=== PATIENT | male | born 1960 | race Caucasian/White ===

== ENCOUNTER → 2024-06-08 | Outpatient (CLI) | payer BC ==
[2024-06-08 10:17] LABS: BASO # 0.05 K/mm3 (0.02-0.10); EOS # 0.52 K/mm3 (0.04-0.40); EOS % 6.5 % (0.0-4.0); HEMATOCRIT 47.6 % (42.0-52.0); HEMOGLOBIN 16.5 g/dL (13.5-18.0); LYMPH# 1.51 K/mm3 (1.50-4.00); MEAN CELL VOLUME 91 fl (78-100); MEAN CORPUSCULAR HEMOGLOBIN 32 pg (27-31); MEAN CORPUSCULAR HGB CONC 35 g/dL (33-37); MONO # 0.77 K/mm3 (0.20-0.80); NEU # 5.12 K/mm3 (1.40-6.50); PLATELET COUNT 238 K/mm3 (130-400); RED BLOOD COUNT 5.22 M/mm3 (4.20-5.60); RED CELL DISTRIBUTION WIDTH 12.2 % (11.5-14.5)
[2024-06-08 10:26] LABS: CALCIUM 9.5 mg/dL (8.3-10.5)
[2024-06-08 10:27] LABS: TOTAL PROTEIN 6.5 g/dL (6.2-8.1)
[2024-06-08 10:29] LABS: TOTAL BILIRUBIN 0.3 mg/dL (0.2-1.2)
== END ==
LOC: LAB 10:05
PROVIDERS: Internal Medicine
DX: C20 Malignant neoplasm of rectum (principal)

== ENCOUNTER → 2024-06-22 | Outpatient (CLI) | payer BC ==
[2024-06-22 12:56] LABS: BASO # 0.04 K/mm3 (0.02-0.10); EOS # 0.36 K/mm3 (0.04-0.40); EOS % 7.2 % (0.0-4.0); HEMATOCRIT 46.6 % (42.0-52.0); LYMPH# 1.57 K/mm3 (1.50-4.00); MEAN CELL VOLUME 93 fl (78-100); MEAN CORPUSCULAR HEMOGLOBIN 32 pg (27-31); MEAN CORPUSCULAR HGB CONC 34 g/dL (33-37); MEAN PLATELET VOLUME 9.7 fl (7.4-10.4); MONO # 0.57 K/mm3 (0.20-0.80); NEU # 2.45 K/mm3 (1.40-6.50); PLATELET COUNT 181 K/mm3 (130-400); RED CELL DISTRIBUTION WIDTH 12.7 % (11.5-14.5)
[2024-06-22 13:09] LABS: ALBUMIN 3.8 g/dL (3.4-4.8)
[2024-06-22 13:11] LABS: CALCIUM 9.1 mg/dL (8.3-10.5)
[2024-06-22 13:12] LABS: TOTAL PROTEIN 6.3 g/dL (6.2-8.1)
[2024-06-22 13:14] LABS: TOTAL BILIRUBIN 0.3 mg/dL (0.2-1.2)
== END ==
LOC: LAB 12:38
PROVIDERS: Internal Medicine
DX: C20 Malignant neoplasm of rectum (principal)

== ENCOUNTER → 2024-07-06 | Outpatient (CLI) | payer BC ==
[2024-07-06 11:37] LABS: BASO # 0.02 K/mm3 (0.02-0.10); EOS # 0.16 K/mm3 (0.04-0.40); EOS % 3.1 % (0.0-4.0); HEMATOCRIT 44.9 % (42.0-52.0); HEMOGLOBIN 15.4 g/dL (13.5-18.0); LYMPH# 0.83 K/mm3 (1.50-4.00); MEAN CELL VOLUME 95 fl (78-100); MEAN CORPUSCULAR HEMOGLOBIN 33 pg (27-31); MEAN CORPUSCULAR HGB CONC 34 g/dL (33-37); MEAN PLATELET VOLUME 9.9 fl (7.4-10.4); NEU # 3.65 K/mm3 (1.40-6.50); PLATELET COUNT 113 K/mm3 (130-400); RED BLOOD COUNT 4.74 M/mm3 (4.20-5.60); RED CELL DISTRIBUTION WIDTH 13.4 % (11.5-14.5); WHITE BLOOD COUNT 5.2 K/mm3 (4.8-10.8)
[2024-07-06 11:40] LABS: ALBUMIN 3.7 g/dL (3.4-4.8)
[2024-07-06 11:41] LABS: CALCIUM 9.5 mg/dL (8.3-10.5)
[2024-07-06 11:43] LABS: TOTAL PROTEIN 6.1 g/dL (6.2-8.1)
[2024-07-06 11:44] LABS: TOTAL BILIRUBIN 0.4 mg/dL (0.2-1.2)
== END ==
LOC: LAB 11:06
PROVIDERS: Internal Medicine
DX: C20 Malignant neoplasm of rectum (principal)

== ENCOUNTER → 2024-07-20 | Outpatient (CLI) | payer SELFPAY ==
[2024-07-20 10:22] LABS: BASO # 0.04 K/mm3 (0.02-0.10); EOS # 0.16 K/mm3 (0.04-0.40); EOS % 2.8 % (0.0-4.0); HEMATOCRIT 44.6 % (42.0-52.0); LYMPH# 1.22 K/mm3 (1.50-4.00); MEAN CELL VOLUME 97 fl (78-100); MEAN CORPUSCULAR HEMOGLOBIN 33 pg (27-31); MEAN CORPUSCULAR HGB CONC 34 g/dL (33-37); MEAN PLATELET VOLUME 9.5 fl (7.4-10.4); MONO # 0.78 K/mm3 (0.20-0.80); NEU # 3.43 K/mm3 (1.40-6.50); PLATELET COUNT 116 K/mm3 (130-400); RED BLOOD COUNT 4.61 M/mm3 (4.20-5.60); RED CELL DISTRIBUTION WIDTH 14.3 % (11.5-14.5); WHITE BLOOD COUNT 5.7 K/mm3 (4.8-10.8)
[2024-07-20 10:30] LABS: CALCIUM 9.6 mg/dL (8.3-10.5)
[2024-07-20 10:31] LABS: TOTAL PROTEIN 6.8 g/dL (6.2-8.1)
[2024-07-20 10:33] LABS: TOTAL BILIRUBIN 0.2 mg/dL (0.2-1.2)
[2024-07-20 10:38] LABS: MAGNESIUM 1.77 mg/dL (1.60-2.60)
== END ==
LOC: LAB 10:11
PROVIDERS: Internal Medicine
DX: C20 Malignant neoplasm of rectum (principal)

== ENCOUNTER → 2024-08-10 | Outpatient (CLI) | payer BC ==
[2024-08-10 14:05] LABS: BASO # 0.03 K/mm3 (0.02-0.10); EOS # 0.13 K/mm3 (0.04-0.40); EOS % 2.3 % (0.0-4.0); HEMATOCRIT 43.3 % (42.0-52.0); HEMOGLOBIN 14.6 g/dL (13.5-18.0); LYMPH# 1.12 K/mm3 (1.50-4.00); MEAN CELL VOLUME 98 fl (78-100); MEAN CORPUSCULAR HEMOGLOBIN 33 pg (27-31); MEAN CORPUSCULAR HGB CONC 34 g/dL (33-37); NEU # 3.46 K/mm3 (1.40-6.50); PLATELET COUNT 89 K/mm3 (130-400); RED CELL DISTRIBUTION WIDTH 15.9 % (11.5-14.5); WHITE BLOOD COUNT 5.7 K/mm3 (4.8-10.8)
[2024-08-10 14:29] LABS: ALBUMIN 3.6 g/dL (3.4-4.8)
[2024-08-10 14:31] LABS: CALCIUM 9.2 mg/dL (8.3-10.5)
[2024-08-10 14:32] LABS: TOTAL PROTEIN 6.2 g/dL (6.2-8.1)
[2024-08-10 14:34] LABS: TOTAL BILIRUBIN 0.5 mg/dL (0.2-1.2)
== END ==
LOC: LAB 13:52
PROVIDERS: Internal Medicine
DX: C20 Malignant neoplasm of rectum (principal)

== ENCOUNTER → 2024-08-24 | Outpatient (CLI) | payer BC ==
[2024-08-24 14:02] LABS: BASO # 0.03 K/mm3 (0.02-0.10); EOS # 0.19 K/mm3 (0.04-0.40); EOS % 3.5 % (0.0-4.0); HEMATOCRIT 46.4 % (42.0-52.0); HEMOGLOBIN 15.5 g/dL (13.5-18.0); LYMPH# 1.52 K/mm3 (1.50-4.00); MEAN CELL VOLUME 99 fl (78-100); MEAN CORPUSCULAR HEMOGLOBIN 33 pg (27-31); MEAN CORPUSCULAR HGB CONC 33 g/dL (33-37); MEAN PLATELET VOLUME 10.1 fl (7.4-10.4); MONO # 0.62 K/mm3 (0.20-0.80); NEU # 3.05 K/mm3 (1.40-6.50); PLATELET COUNT 110 K/mm3 (130-400); RED BLOOD COUNT 4.67 M/mm3 (4.20-5.60); RED CELL DISTRIBUTION WIDTH 14.6 % (11.5-14.5); WHITE BLOOD COUNT 5.4 K/mm3 (4.8-10.8)
[2024-08-24 14:07] LABS: CALCIUM 10.2 mg/dL (8.3-10.5)
[2024-08-24 14:08] LABS: TOTAL PROTEIN 6.8 g/dL (6.2-8.1)
[2024-08-24 14:10] LABS: TOTAL BILIRUBIN 0.4 mg/dL (0.2-1.2)
[2024-08-24 14:14] LABS: MAGNESIUM 1.93 mg/dL (1.60-2.60)
== END ==
LOC: LAB 13:48
PROVIDERS: Nurse Practitioner Family
DX: C20 Malignant neoplasm of rectum (principal)

== ENCOUNTER → 2024-09-02 | Outpatient (CLI) | payer BC ==
[2024-09-02 14:37] LABS: BASO # 0.03 K/mm3 (0.02-0.10); EOS # 0.26 K/mm3 (0.04-0.40); EOS % 5.4 % (0.0-4.0); HEMATOCRIT 49.1 % (42.0-52.0); HEMOGLOBIN 16.1 g/dL (13.5-18.0); LYMPH# 1.01 K/mm3 (1.50-4.00); MEAN CELL VOLUME 101 fl (78-100); MEAN CORPUSCULAR HEMOGLOBIN 33 pg (27-31); MEAN CORPUSCULAR HGB CONC 33 g/dL (33-37); MEAN PLATELET VOLUME 10.3 fl (7.4-10.4); MONO # 0.36 K/mm3 (0.20-0.80); NEU # 3.11 K/mm3 (1.40-6.50); RED BLOOD COUNT 4.86 M/mm3 (4.20-5.60); RED CELL DISTRIBUTION WIDTH 14.4 % (11.5-14.5); WHITE BLOOD COUNT 4.8 K/mm3 (4.8-10.8)
[2024-09-02 14:49] LABS: ALBUMIN 4.3 g/dL (3.4-4.8)
[2024-09-02 14:51] LABS: CALCIUM 10.7 mg/dL (8.3-10.5)
[2024-09-02 14:52] LABS: TOTAL PROTEIN 7.4 g/dL (6.2-8.1)
[2024-09-02 14:54] LABS: TOTAL BILIRUBIN 0.7 mg/dL (0.2-1.2)
[2024-09-02 14:56] LABS: PLATELET COUNT 81 K/mm3 (130-400)
[2024-09-02 14:58] LABS: MAGNESIUM 1.98 mg/dL (1.60-2.60)
== END ==
LOC: LAB 14:13
PROVIDERS: Internal Medicine
DX: C20 Malignant neoplasm of rectum (principal)

== ENCOUNTER → 2024-09-15 | Outpatient (CLI) | payer BC | LOC: LAB 16:44 | DX: Z12.5 Encounter for screening for malignant neoplasm of prostate (principal) ==

== ENCOUNTER → 2024-09-19 | Outpatient (CLI) | payer BC ==
[2024-09-19 14:38] LABS: BASO # 0.02 K/mm3 (0.02-0.10); EOS # 0.07 K/mm3 (0.04-0.40); HEMOGLOBIN 12.5 g/dL (13.5-18.0); LYMPH# 0.66 K/mm3 (1.50-4.00); MEAN CELL VOLUME 100 fl (78-100); MEAN CORPUSCULAR HEMOGLOBIN 33 pg (27-31); MEAN CORPUSCULAR HGB CONC 33 g/dL (33-37); MEAN PLATELET VOLUME 9.1 fl (7.4-10.4); MONO # 0.71 K/mm3 (0.20-0.80); NEU # 5.51 K/mm3 (1.40-6.50); PLATELET COUNT 186 K/mm3 (130-400); RED BLOOD COUNT 3.81 M/mm3 (4.20-5.60); RED CELL DISTRIBUTION WIDTH 13.2 % (11.5-14.5)
[2024-09-19 16:23] LABS: ALBUMIN 3.1 g/dL (3.4-4.8)
[2024-09-19 16:25] LABS: CALCIUM 9.1 mg/dL (8.3-10.5)
[2024-09-19 16:26] LABS: TOTAL PROTEIN 6.4 g/dL (6.2-8.1)
[2024-09-19 16:28] LABS: TOTAL BILIRUBIN 0.4 mg/dL (0.2-1.2)
[2024-09-19 16:32] LABS: MAGNESIUM 1.73 mg/dL (1.60-2.60)
== END ==
LOC: LAB 14:20
PROVIDERS: Internal Medicine
DX: C20 Malignant neoplasm of rectum (principal)

== ENCOUNTER → 2024-10-14 | Outpatient (CLI) | payer BC ==
[2024-10-14 14:05] LABS: BASO # 0.02 K/mm3 (0.02-0.10); EOS # 0.03 K/mm3 (0.04-0.40); EOS % 0.4 % (0.0-4.0); HEMATOCRIT 39.9 % (42.0-52.0); HEMOGLOBIN 12.9 g/dL (13.5-18.0); LYMPH# 0.84 K/mm3 (1.50-4.00); MEAN CELL VOLUME 96 fl (78-100); MEAN CORPUSCULAR HEMOGLOBIN 31 pg (27-31); MEAN CORPUSCULAR HGB CONC 32 g/dL (33-37); MEAN PLATELET VOLUME 9.3 fl (7.4-10.4); MONO # 0.76 K/mm3 (0.20-0.80); NEU # 5.93 K/mm3 (1.40-6.50); PLATELET COUNT 317 K/mm3 (130-400); RED BLOOD COUNT 4.15 M/mm3 (4.20-5.60); WHITE BLOOD COUNT 7.6 K/mm3 (4.8-10.8)
[2024-10-14 14:10] LABS: ALBUMIN 3.4 g/dL (3.4-4.8)
[2024-10-14 14:12] LABS: CALCIUM 9.7 mg/dL (8.3-10.5)
[2024-10-14 14:13] LABS: TOTAL PROTEIN 8.2 g/dL (6.2-8.1)
[2024-10-14 14:15] LABS: TOTAL BILIRUBIN 0.3 mg/dL (0.2-1.2)
== END ==
LOC: LAB 13:48
PROVIDERS: Internal Medicine
DX: C20 Malignant neoplasm of rectum (principal)

== ENCOUNTER → 2024-10-20 | Outpatient (CLI) | payer BC ==
[2024-10-20 18:48] LABS: BASO # 0.02 K/mm3 (0.02-0.10); EOS # 0.05 K/mm3 (0.04-0.40); EOS % 0.7 % (0.0-4.0); HEMATOCRIT 39.6 % (42.0-52.0); HEMOGLOBIN 12.6 g/dL (13.5-18.0); LYMPH# 0.99 K/mm3 (1.50-4.00); MEAN CELL VOLUME 96 fl (78-100); MEAN CORPUSCULAR HEMOGLOBIN 31 pg (27-31); MEAN CORPUSCULAR HGB CONC 32 g/dL (33-37); MEAN PLATELET VOLUME 9.1 fl (7.4-10.4); NEU # 5.43 K/mm3 (1.40-6.50); PLATELET COUNT 313 K/mm3 (130-400); RED BLOOD COUNT 4.11 M/mm3 (4.20-5.60); RED CELL DISTRIBUTION WIDTH 13.5 % (11.5-14.5); WHITE BLOOD COUNT 7.2 K/mm3 (4.8-10.8)
== END ==
LOC: LAB 18:25
PROVIDERS: Radiology Radiation Oncology
DX: C20 Malignant neoplasm of rectum (principal)

== ENCOUNTER → 2024-10-21 | Outpatient (CLI) | payer BC ==
[2024-10-21 13:41] LABS: ALBUMIN 3.2 g/dL (3.4-4.8)
[2024-10-21 13:42] LABS: CALCIUM 8.9 mg/dL (8.3-10.5)
[2024-10-21 13:43] LABS: TOTAL PROTEIN 7.3 g/dL (6.2-8.1)
[2024-10-21 13:45] LABS: TOTAL BILIRUBIN 0.3 mg/dL (0.2-1.2)
[2024-10-21 13:50] LABS: MAGNESIUM 1.82 mg/dL (1.60-2.60)
== END ==
LOC: LAB 13:23
PROVIDERS: Internal Medicine
DX: C20 Malignant neoplasm of rectum (principal)

== ENCOUNTER → 2024-10-27 | Outpatient (CLI) | payer BC ==
[2024-10-27 13:56] LABS: BASO # 0.01 K/mm3 (0.02-0.10); EOS # 0.06 K/mm3 (0.04-0.40); HEMATOCRIT 38.9 % (42.0-52.0); HEMOGLOBIN 12.2 g/dL (13.5-18.0); LYMPH# 0.68 K/mm3 (1.50-4.00); MEAN CELL VOLUME 97 fl (78-100); MEAN CORPUSCULAR HEMOGLOBIN 31 pg (27-31); MEAN CORPUSCULAR HGB CONC 31 g/dL (33-37); MEAN PLATELET VOLUME 8.6 fl (7.4-10.4); MONO # 0.32 K/mm3 (0.20-0.80); NEU # 5.01 K/mm3 (1.40-6.50); PLATELET COUNT 241 K/mm3 (130-400); RED CELL DISTRIBUTION WIDTH 14.4 % (11.5-14.5); WHITE BLOOD COUNT 6.1 K/mm3 (4.8-10.8)
[2024-10-27 14:11] LABS: ALBUMIN 3.3 g/dL (3.4-4.8)
[2024-10-27 14:13] LABS: CALCIUM 9.5 mg/dL (8.3-10.5)
[2024-10-27 14:14] LABS: TOTAL PROTEIN 7.5 g/dL (6.2-8.1)
[2024-10-27 14:16] LABS: TOTAL BILIRUBIN 0.3 mg/dL (0.2-1.2)
[2024-10-27 14:20] LABS: MAGNESIUM 1.75 mg/dL (1.60-2.60)
== END ==
LOC: LAB 13:43
PROVIDERS: Internal Medicine
DX: C20 Malignant neoplasm of rectum (principal)

== ENCOUNTER → 2024-11-03 | Outpatient (CLI) | payer BC ==
[2024-11-03 16:44] LABS: HEMATOCRIT 37.5 % (42.0-52.0); HEMOGLOBIN 12.2 g/dL (13.5-18.0); MEAN CELL VOLUME 96 fl (78-100); MEAN CORPUSCULAR HEMOGLOBIN 31 pg (27-31); MEAN CORPUSCULAR HGB CONC 33 g/dL (33-37); MEAN PLATELET VOLUME 8.7 fl (7.4-10.4); PLATELET COUNT 146 K/mm3 (130-400); RED CELL DISTRIBUTION WIDTH 15.3 % (11.5-14.5); WHITE BLOOD COUNT 4.3 K/mm3 (4.8-10.8)
[2024-11-03 16:52] LABS: ALBUMIN 3.5 g/dL (3.4-4.8)
[2024-11-03 16:53] LABS: CALCIUM 9.3 mg/dL (8.3-10.5)
[2024-11-03 16:54] LABS: TOTAL PROTEIN 7.8 g/dL (6.2-8.1)
[2024-11-03 16:56] LABS: TOTAL BILIRUBIN 0.5 mg/dL (0.2-1.2)
[2024-11-03 17:01] LABS: MAGNESIUM 1.6 mg/dL (1.60-2.60)
[2024-11-03 17:21] LABS: LYMPHOCYTE 5 % (20-51); MONOCYTE 8 % (3-10); NEUTROPHILS 87 % (42-75)
== END ==
LOC: LAB 16:16
PROVIDERS: Internal Medicine
DX: C20 Malignant neoplasm of rectum (principal)

== ENCOUNTER → 2024-11-10 | Outpatient (CLI) | payer BC ==
[2024-11-10 15:22] LABS: HEMATOCRIT 36.3 % (42.0-52.0); HEMOGLOBIN 11.5 g/dL (13.5-18.0); MEAN CELL VOLUME 95 fl (78-100); MEAN CORPUSCULAR HEMOGLOBIN 30 pg (27-31); MEAN CORPUSCULAR HGB CONC 32 g/dL (33-37); MEAN PLATELET VOLUME 9.4 fl (7.4-10.4); PLATELET COUNT 234 K/mm3 (130-400); RED BLOOD COUNT 3.81 M/mm3 (4.20-5.60); RED CELL DISTRIBUTION WIDTH 15.9 % (11.5-14.5)
[2024-11-10 15:26] LABS: ALBUMIN 3.3 g/dL (3.4-4.8)
[2024-11-10 15:27] LABS: CALCIUM 9.2 mg/dL (8.3-10.5)
[2024-11-10 15:29] LABS: TOTAL PROTEIN 7.5 g/dL (6.2-8.1)
[2024-11-10 15:30] LABS: TOTAL BILIRUBIN 0.4 mg/dL (0.2-1.2)
[2024-11-10 15:35] LABS: MAGNESIUM 1.37 mg/dL (1.60-2.60)
[2024-11-10 16:18] LABS: LYMPHOCYTE 9 % (20-51); MONOCYTE 8 % (3-10); NEUTROPHILS 82 % (42-75)
== END ==
LOC: LAB 15:04
PROVIDERS: Internal Medicine
DX: C20 Malignant neoplasm of rectum (principal)

== ENCOUNTER → 2024-11-17 | Outpatient (CLI) | payer BC ==
[2024-11-17 17:37] LABS: HEMATOCRIT 39.9 % (42.0-52.0); HEMOGLOBIN 12.4 g/dL (13.5-18.0); MEAN CELL VOLUME 97 fl (78-100); MEAN CORPUSCULAR HEMOGLOBIN 30 pg (27-31); MEAN CORPUSCULAR HGB CONC 31 g/dL (33-37); MEAN PLATELET VOLUME 8.9 fl (7.4-10.4); PLATELET COUNT 242 K/mm3 (130-400); RED BLOOD COUNT 4.13 M/mm3 (4.20-5.60); RED CELL DISTRIBUTION WIDTH 16.4 % (11.5-14.5); WHITE BLOOD COUNT 5.9 K/mm3 (4.8-10.8)
[2024-11-17 17:46] LABS: ALBUMIN 3.5 g/dL (3.4-4.8)
[2024-11-17 17:47] LABS: CALCIUM 9.5 mg/dL (8.3-10.5)
[2024-11-17 17:48] LABS: TOTAL PROTEIN 7.7 g/dL (6.2-8.1)
[2024-11-17 17:50] LABS: TOTAL BILIRUBIN 0.4 mg/dL (0.2-1.2)
[2024-11-17 17:55] LABS: MAGNESIUM 1.65 mg/dL (1.60-2.60)
[2024-11-17 18:24] LABS: LYMPHOCYTE 10 % (20-51); MONOCYTE 7 % (3-10); NEUTROPHILS 82 % (42-75)
== END ==
LOC: LAB 17:04
PROVIDERS: Internal Medicine
DX: C20 Malignant neoplasm of rectum (principal)

== ENCOUNTER → 2024-11-22 | Outpatient (CLI) | payer BC ==
[~2024-11-22] VITALS: Ht 177.8 cm; Wt 63.0 kg
[~2024-11-22] MED LIST: ELIQUIS5 MG PO; ONDANSETRON HYDR4 MG PO
[2024-11-22 15:14] VITALS: BP 110/65
--- NOTE | 2024-11-22 16:19 | NUR ---
PATIENT HERE FOR WOUND CARE TO COCCYX. CURRENTLY GETTING RADIATION FOR RECTAL CANCER. CONSENT SIGNED. PHOTOGRAPHS AND MEASUREMENTS TAKEN. SEE PROVIDER NOTED. BLANACHABLE REDNESS, ONE OPEN AREA. ORDERS TO PLACE TRIAD CREAM AND SACRAL DRESSING. SUPPLIES GIVEN FOR PATIENT TO CHNAGE EVERY OTHER DAY. PATIENT SCHEDULED NEXT THURSDAY.
--- NOTE | 2024-11-28 09:34 | NUR ---
H&P SENT TO DR. STEPHANIE AGUILAR.
== END | disposition home or self-care (01) ==
LOC: WOUND 15:04
DX: L89.892 Pressure ulcer of other site, stage 2 (principal); C20 Malignant neoplasm of rectum; Z79.60 Long term (current) use of unspecified immunomodulators and immunosuppressants; Z92.3 Personal history of irradiation

== ENCOUNTER → 2024-12-01 | Outpatient (CLI) | payer BC ==
[2024-12-01 16:21] LABS: HEMATOCRIT 38.3 % (42.0-52.0); MEAN CELL VOLUME 99 fl (78-100); MEAN CORPUSCULAR HEMOGLOBIN 31 pg (27-31); MEAN CORPUSCULAR HGB CONC 31 g/dL (33-37); MEAN PLATELET VOLUME 8.5 fl (7.4-10.4); PLATELET COUNT 201 K/mm3 (130-400); RED BLOOD COUNT 3.89 M/mm3 (4.20-5.60); RED CELL DISTRIBUTION WIDTH 17.8 % (11.5-14.5)
[2024-12-01 16:25] LABS: ALBUMIN 3.5 g/dL (3.4-4.8)
[2024-12-01 16:26] LABS: CALCIUM 9.8 mg/dL (8.3-10.5)
[2024-12-01 16:27] LABS: TOTAL PROTEIN 7.7 g/dL (6.2-8.1)
[2024-12-01 16:29] LABS: TOTAL BILIRUBIN 0.3 mg/dL (0.2-1.2)
[2024-12-01 16:34] LABS: MAGNESIUM 1.73 mg/dL (1.60-2.60)
[2024-12-01 17:09] LABS: NEUTROPHILS 80 % (42-75)
[2024-12-01 17:10] LABS: LYMPHOCYTE 7 % (20-51); MONOCYTE 12 % (3-10)
[2024-12-01 17:16] LABS: TEAR DROP CELLS 1+
== END ==
LOC: LAB 16:05
PROVIDERS: Internal Medicine
DX: C20 Malignant neoplasm of rectum (principal)